=== PATIENT | female | born 2000 ===

== ENCOUNTER 2021-11-06 17:28 | Emergency (ER) | payer MEDICAID ==
[~2021-11-06] VITALS: Ht 165.1 cm; Wt 55.0 kg
[2021-11-06 17:33] VITALS: BP 117/81
== END 2021-11-06 20:48 | disposition home or self-care (01) ==
LOC: ER 17:30
DX: R11.0 Nausea (principal); Z20.822 Contact with and (suspected) exposure to COVID-19; R53.83 Other fatigue; R53.1 Weakness; R50.9 Fever, unspecified
CPT/HCPCS: 87635; 99283; C9803